=== PATIENT | female | born 1950 | race Caucasian/White ===

== ENCOUNTER 2017-10-15 03:26 | Emergency (ER) | payer MEDICARE, OTHER ==
[~2017-10-15] VITALS: Ht 175.3 cm; Wt 78.0 kg
[~2017-10-15 03:26] MED LIST: AZIT250T PO; BENZ-16 PO
[2017-10-15] MEDS ORDERED: mag hydrox/Alum hydrox/simeth 30ml oral suspension PO ONE (03:50)
[2017-10-15] MEDS ORDERED: LIDOcaine Viscous 15ml cup MM PRN (03:50)
[2017-10-15] MEDS ORDERED: famotidine 20mg tablet PO ONE (03:50)
[2017-10-15 03:58] LABS: CLARITY,URINE SLIGHTLY CLOUDY (Clear); COLOR,URINE YELLOW (Yellow); GLUCOSE, URINE NEGATIVE (Neg); KETONES,URINE NEGATIVE (Neg); LEUKOCYTE ESTERASE ,URINE NEGATIVE (Neg); NITRITES, URINE NEGATIVE (Neg); OCCULT BLOOD,URINE MODERATE (Neg); PH,URINE 7.5 (4.8-8.0); PROTEIN,URINE TRACE mg/dl (Neg)
[2017-10-15 04:04] LABS: UA COLLECTION TYPE CLN CATCH MIDSTREAM
[2017-10-15 04:05] LABS: BACTERIA,URINE FEW /HPF (Neg); MUCUS STRANDS FEW /LPF (Neg); SQUAMOUS EPITHELIAL CELL,UR FEW /LPF (FEW); WBC,URINE 0-4 /HPF (0-4)
[2017-10-15 04:06] LABS: HYALINE CASTS 0-3 /LPF (NEGATIVE)
[2017-10-15 04:21] LABS: BASOPHILS % (AUTO) 0.2 % (0-1); EOSINOPHILS # (AUTO) 0.1 X10'3 (0-0.9); EOSINOPHILS % (AUTO) 0.9 % (0-6); HEMATOCRIT 43.3 % (35.0-45.0); HEMOGLOBIN 14.6 g/dl (12.0-16.0); LYMPHOCYTES # (AUTO) 1.4 X10'3 (1.1-4.8); LYMPHOCYTES % (AUTO) 15.7 % (21-51); MEAN CORPUSCULAR HEMOGLOBIN 32.7 PG (27.0-31.0); MEAN CORPUSCULAR HGB CONC 33.7 % (33.0-36.5); MEAN CORPUSCULAR VOLUME 97.1 FL (78-98); MEAN PLATELET VOLUME 9.8 FL (7.4-10.4); MONOCYTES # (AUTO) 0.3 X10'3 (0-0.9); MONOCYTES % (AUTO) 3.7 % (2-12); NEUTROPHILS # (AUTO) 7.1 X10'3 (1.8-7.7); NEUTROPHILS % (AUTO) 79.5 % (42-75); PLATELET COUNT 167 X10'3 (140-440); RED BLOOD COUNT 4.46 X10'6 (4.20-5.60); RED CELL DISTRIBUTION WIDTH 13.2 % (11.5-14.5); WHITE BLOOD COUNT 8.9 X10'3 (4.5-11.0)
[2017-10-15 04:35] LABS: ALANINE AMINOTRANSFERASE 26 U/L (12-78); ALBUMIN 4.1 G/DL (3.4-5.0); ALBUMIN/GLOBULIN RATIO 1.1 (1.1-1.5); ALKALINE PHOSPHATASE 95 IU/L (46-116); ANION GAP 6 (8-16); ASPARTATE AMINO TRANSFERASE 23 U/L (10-37); BILIRUBIN,TOTAL 0.4 MG/DL (0.1-1.0); BLOOD UREA NITROGEN 19 MG/DL (7-18); BUN/CREATININE RATIO 17.8 (6.6-38.0); CALCIUM 9.8 MG/DL (8.5-10.1); CHLORIDE 103 MMOL/L (99-107); CREATININE 1.07 MG/DL (0.40-0.90); GLUCOSE 139 MG/DL (70-104); LIPASE 70 U/L (73-393); POTASSIUM 4.3 MMOL/L (3.5-5.1); SODIUM 141 MMOL/L (135-145); TOTAL CARBON DIOXIDE 31.7 MMOL/L (24-32); TOTAL PROTEIN 7.8 G/DL (6.4-8.2); eGFR 51 ML/MIN
[2017-10-15] MEDS ORDERED: fentaNYL/PF 50MCG/1 ML 2ML syringe IV ONE (05:00)
[2017-10-15] MEDS ORDERED: ondansetron/PF 4mg/2ml inj IV ONE (05:05)
[2017-10-15] MEDS ORDERED: HYDR-3965 PO (05:52)
[2017-10-15] MEDS ORDERED: ONDA8TAB9 PO (05:52)
[2017-10-15 06:10] VITALS: BP 136/66
== END 2017-10-15 06:13 | disposition home or self-care (01) ==
LOC: ER 03:27
DX: K52.9 Noninfective gastroenteritis and colitis, unspecified (principal); I48.91 Unspecified atrial fibrillation; Z98.890 Other specified postprocedural states; Z79.2 Long term (current) use of antibiotics; Z88.5 Allergy status to narcotic agent; Z79.899 Other long term (current) drug therapy
CPT/HCPCS: 36415; 74176; 80053; 81001; 83690; 84484; 85025; 93005; 96374; 96375; 99285; J2405; J3010

== ENCOUNTER 2018-03-18 18:48 | Emergency (ER) | payer MEDICARE, OTHER ==
[~2018-03-18] VITALS: Ht 175.3 cm; Wt 90.6 kg
[~2018-03-18 18:48] MED LIST changes: +ONDA8TAB9 PO
[2018-03-18 18:55] VITALS: BP 174/68
[2018-03-18] MEDS ORDERED: acetaminophen 325mg tablet PO ONE (22:15)
[2018-03-18] MEDS ORDERED: ketorolac trometh inj. 60 MG/2 ML VIAL IM ONE (22:15)
[2018-03-18] MEDS ORDERED: HYDR-3965 PO (22:50)
== END 2018-03-18 22:55 | disposition home or self-care (01) ==
LOC: ER 18:48
DX: M25.562 Pain in left knee (principal); M79.671 Pain in right foot; I48.91 Unspecified atrial fibrillation
CPT/HCPCS: 73560; 93971; 96372; 99284; J1885

== ENCOUNTER 2019-01-08 14:25 | Emergency (ER) | payer MEDICARE, OTHER ==
[~2019-01-08] VITALS: Ht 175.3 cm; Wt 92.0 kg
[2019-01-08 14:54] VITALS: BP 111/58
[2019-01-08] MEDS ORDERED: cyclobenzaprine 10mg tablet PO ONE (15:35)
[2019-01-08] MEDS ORDERED: CYCL-1 PO (15:44)
== END 2019-01-08 16:04 | disposition home or self-care (01) ==
LOC: ER 14:26
DX: S39.012A Strain of muscle, fascia and tendon of lower back, initial encounter (principal); I48.91 Unspecified atrial fibrillation; M19.90 Unspecified osteoarthritis, unspecified site; G89.29 Other chronic pain; Z98.890 Other specified postprocedural states; Z88.5 Allergy status to narcotic agent; Z79.2 Long term (current) use of antibiotics; Z79.899 Other long term (current) drug therapy; X58.XXXA Exposure to other specified factors, initial encounter; Y93.89 Activity, other specified; Y92.89 Other specified places as the place of occurrence of the external cause; Y99.8 Other external cause status
CPT/HCPCS: 99283

== ENCOUNTER 2019-07-22 11:56 | Outpatient (CLI) | payer MEDICARE, OTHER ==
[~2019-07-22 11:56] MED LIST changes: +CYCL-1 PO
[2019-07-22] MEDS ORDERED: MECL-159 PO (14:45)
== END 2019-07-22 12:40 | disposition home or self-care (01) ==
LOC: CARD DIAG 11:56
PROVIDERS: ATTEND Internal Medicine Cardiovascular Disease
DX: R42 Dizziness and giddiness (principal); Z53.21 Procedure and treatment not carried out due to patient leaving prior to being seen by health care provider

== ENCOUNTER 2019-07-22 12:45 | Emergency (ER) | payer MEDICARE, OTHER ==
[~2019-07-22] VITALS: Ht 175.3 cm; Wt 98.2 kg
[2019-07-22 13:40] LABS: ALANINE AMINOTRANSFERASE 27 U/L (12-78); ALBUMIN 3.9 G/DL (3.4-5.0); ANION GAP 5 (8-16); ASPARTATE AMINO TRANSFERASE 22 U/L (10-37); BILIRUBIN,TOTAL 0.3 MG/DL (0.1-1.0); BLOOD UREA NITROGEN 20 MG/DL (7-18); CALCIUM 9.4 MG/DL (8.5-10.1); CHLORIDE 106 MMOL/L (99-107); CREATININE 1.11 MG/DL (0.40-0.90); GLUCOSE 126 MG/DL (70-104); SODIUM 140 MMOL/L (135-145); TOTAL CARBON DIOXIDE 29.3 MMOL/L (24-32); TOTAL PROTEIN 7.9 G/DL (6.4-8.2); eGFR 49 ML/MIN
[2019-07-22 13:43] LABS: BASOPHILS % (AUTO) 0.6 % (0-1); EOSINOPHILS # (AUTO) 0.1 X10'3 (0-0.9); EOSINOPHILS % (AUTO) 1.1 % (0-6); HEMATOCRIT 42.1 % (35.0-45.0); HEMOGLOBIN 13.9 g/dl (12.0-16.0); LYMPHOCYTES # (AUTO) 1.5 X10'3 (1.1-4.8); LYMPHOCYTES % (AUTO) 24.4 % (21-51); MEAN CORPUSCULAR HEMOGLOBIN 32.5 PG (27.0-31.0); MEAN CORPUSCULAR VOLUME 98.5 FL (78-98); MEAN PLATELET VOLUME 9.7 FL (7.4-10.4); MONOCYTES # (AUTO) 0.2 X10'3 (0-0.9); MONOCYTES % (AUTO) 3.5 % (2-12); NEUTROPHILS # (AUTO) 4.2 X10'3 (1.8-7.7); NEUTROPHILS % (AUTO) 70.4 % (42-75); PLATELET COUNT 210 X10'3 (140-440); RED BLOOD COUNT 4.27 X10'6 (4.20-5.60); WHITE BLOOD COUNT 5.9 X10'3 (4.5-11.0)
[2019-07-22] MEDS ORDERED: normal saline 1000ML IV soln IVB ONE (13:45)
[2019-07-22 13:55] LABS: ALKALINE PHOSPHATASE 105 IU/L (46-116)
[2019-07-22] MEDS ORDERED: MECL-159 PO (14:45)
[2019-07-22] MEDS ORDERED: metoclopramide 5 mg/ml inj IV ONE (14:50)
[2019-07-22 15:32] VITALS: BP 150/72
== END 2019-07-22 15:57 | disposition home or self-care (01) ==
LOC: ER 12:45
DX: H81.10 Benign paroxysmal vertigo, unspecified ear (principal); I48.91 Unspecified atrial fibrillation; M19.90 Unspecified osteoarthritis, unspecified site; G89.29 Other chronic pain; Z98.890 Other specified postprocedural states; Z90.89 Acquired absence of other organs; Z88.5 Allergy status to narcotic agent
CPT/HCPCS: 36415; 71045; 80053; 84439; 84443; 84484; 85025; 93005; 96374; 99285; J2765; J7030

== ENCOUNTER 2021-03-11 14:14 | Outpatient (CLI) | payer MEDICARE ==
[~2021-03-11] VITALS: Ht 172.7 cm; Wt 95.7 kg
[~2021-03-11 14:14] MED LIST changes: +ALBU8.5H17 INH; +AMIO200T61 PO; +APIX5TAB3 PO; -AZIT250T PO; -BENZ-16 PO; +CEFD300C3 PO; -CYCL-1 PO; +FURO20TA4 PO; +LACT1CAP26 PO; +METO25TA6 PO; -ONDA8TAB9 PO; +POTA-188 PO; +ROSU20TA31 PO; +TRAM50TA2 PO
[2021-03-11] MEDS ORDERED: albuterol 2.5 MG/3 ML nebule NEB ONE (15:00)
[2021-04-07] MEDS ORDERED: POTA10CA44 PO (00:02)
[2021-04-07] MEDS ORDERED: FURO-150 PO (00:02)
== END 2021-03-11 23:59 | disposition home or self-care (01) ==
LOC: RT 14:14
PROVIDERS: ATTEND Internal Medicine Cardiovascular Disease
DX: R94.2 Abnormal results of pulmonary function studies (principal); Z79.899 Other long term (current) drug therapy
CPT/HCPCS: 71046; 94060; 94727; 94729; 94760